=== PATIENT | female | born 1975 | race Two or more races ===

== ENCOUNTER 2018-09-11 23:47 | Emergency (ER) | payer OTHER ==
[~2018-09-11] VITALS: Ht 165.1 cm; Wt 87.1 kg
[~2018-09-11 23:47] MED LIST: DECON-A LIQUID118 ML PO
[2018-09-12] MEDS ORDERED: PEPCID40 MG PO (04:35)
[2018-09-12] MEDS ORDERED: PHENERGAN25 MG PO (04:35)
[2018-09-12] MEDS ORDERED: INTESTINEX680 M1 PO ×2 (04:36→04:37)
[2018-09-12] MEDS ORDERED: LEVSIN/SL0.125 MG SL ×2 (04:36→04:37)
== END 2018-09-12 04:47 | disposition home or self-care (01) ==
LOC: ER 23:47
DX: K29.70 Gastritis, unspecified, without bleeding (principal)

== ENCOUNTER 2020-01-22 13:47 | Emergency (ER) | payer OTHER ==
[~2020-01-22] VITALS: Ht 165.1 cm; Wt 86.2 kg
[~2020-01-22 13:47] MED LIST changes: +INTESTINEX680 M1 PO; +LEVSIN/SL0.125 MG SL; +PEPCID40 MG PO; +PHENERGAN25 MG PO
== END 2020-01-22 16:35 | disposition home or self-care (01) ==
LOC: ER 13:47
DX: B34.9 Viral infection, unspecified (principal); Z03.818 Encounter for observation for suspected exposure to other biological agents ruled out

== ENCOUNTER 2021-01-14 13:51 | Emergency (ER) | payer OTHER ==
[~2021-01-14] VITALS: Ht 165.1 cm; Wt 86.2 kg
[2021-01-14] MEDS ORDERED: DICLOFENAC POTA50 MG PO (16:45)
[2021-01-14] MEDS ORDERED: ORPHENADRINE C100 MG PO (16:45)
== END 2021-01-14 17:24 ==
LOC: ER 13:51
DX: S33.5XXA Sprain of ligaments of lumbar spine, initial encounter (principal); M25.529 Pain in unspecified elbow; Y92.410 Unspecified street and highway as the place of occurrence of the external cause; V49.40XA Driver injured in collision with unspecified motor vehicles in traffic accident, initial encounter

== ENCOUNTER 2022-02-12 08:37 | Emergency (ER) | payer OTHER ==
[~2022-02-12] VITALS: Ht 160 cm; Wt 68.0 kg
[~2022-02-12 08:37] MED LIST changes: +DICLOFENAC POTA50 MG PO; +ORPHENADRINE C100 MG PO
[2022-02-12] MEDS ORDERED: FLONASE ALLERG9.9 ML NASAL (11:51)
[2022-02-12] MEDS ORDERED: SINUS RINSE ST1 EACH NS (11:51)
[2022-02-12] MEDS ORDERED: DOLOGEN 325-11 EACH PO (11:51)
[2022-02-12] MEDS ORDERED: MEDROLPACK PO (11:51)
== END 2022-02-12 12:48 | disposition home or self-care (01) ==
LOC: ER 08:37
DX: U07.1 COVID-19 (principal); R50.9 Fever, unspecified; M79.10 Myalgia, unspecified site; R51.9 Headache, unspecified